=== PATIENT | female | born 1995 | race Caucasian/White ===

== ENCOUNTER 2017-04-18 20:52 | Emergency (ER) | payer SELFPAY ==
[~2017-04-18] VITALS: Ht 152.4 cm; Wt 80.0 kg
[~2017-04-18 20:52] MED LIST: CEPHALEXIN500 MG PO; NAPROSYN500 MG PO; NO HOME MEDS; TRIMOX500 MG PO
[2017-04-18] MEDS ORDERED: LESSINA PO (21:01)
[2017-04-18 21:33] LABS: URINE BILIRUBIN - DIPSTICK NEGATIVE (NEGATIVE); URINE BLOOD DIPSTICK TRACE-INTACT (NEGATIVE); URINE CLARITY CLEAR; URINE COLOR YELLOW; URINE GLUCOSE - DIPSTICK NEGATIVE (NEGATIVE); URINE KETONE NEGATIVE (NEGATIVE); URINE NITRITE - DIPSTICK NEGATIVE (Negative); URINE PH 5.5 (4.5-8.0); URINE PROTEIN - DIPSTICK NEGATIVE (NEG-TRACE); URINE UROBILINOGEN - DIPSTICK 0.2 E.U./dL (0.2)
[2017-04-18 21:46] LABS: HEMATOCRIT 40.9 % (37.0-47.0); HEMOGLOBIN 13.9 g/dl (12.0-16.0); IMMATURE GRANULOCYTES 0.3 % (0.0-1.0); MEAN CORPUSCULAR HGB 29.9 pG CALC (26.0-32.0); NEUT# 7.25 thou/uL (2.00-7.15); RED BLOOD COUNT 4.65 mill/uL (4.20-5.60); RED CELL DISTRI WIDTH 12.5 % (11.5-15.5)
[2017-04-18 21:47] LABS: URINE LEUK ESTERASE NEGATIVE (NEGATIVE)
[2017-04-18 21:50] LABS: ALBUMIN 4.6 g/dL (3.2-5.0); ALKALINE PHOSPHATASE 72 u/l (38-126); AMYLASE 49 u/l (30-110); ANION GAP 17 (6-22 (CALC)); BILIRUBIN, TOTAL 0.3 mg/dL (0.0-1.4); BUN 10 mg/dL (7-17); BUN/CREATININE RATIO 17 (12-20 (CALC)); CALCIUM 9.9 mg/dL (8.4-10.2); CARBON DIOXIDE 25 mmol/l (22-30); CHLORIDE 105 mmol/l (95-108); CREATININE 0.6 mg/dL (0.5-1.0); GFR > 60 ML/MIN (>=60 (CALC)); GFR FOR AFR.AMER. > 60 ML/MIN (>=60 (CALC)); GLUCOSE 90 mg/dL (65-105); LIPASE 98 u/l (23-300); POTASSIUM 4.1 mmol/l (3.5-5.1); SGOT/AST 19 u/l (14-36); SGPT/ALT 46 u/l (9-52); SODIUM 143 mmol/l (137-146); TOTAL PROTEIN 7.7 g/dL (6.3-8.2)
[2017-04-19 01:58] VITALS: BP 125/63
[2017-04-19] MEDS ORDERED: PRILOSEC20 MG PO (01:59)
== END 2017-04-19 02:24 | disposition home or self-care (01) | DRG 392 ==
LOC: ED 20:52
PROVIDERS: Emergency Medicine
DX: R10.11 Right upper quadrant pain (principal)
CPT/HCPCS: S0164

== ENCOUNTER 2017-08-16 01:03 | Emergency (ER) | payer SELFPAY ==
[~2017-08-16] VITALS: Ht 152.4 cm; Wt 78.0 kg
[~2017-08-16 01:03] MED LIST changes: +LESSINA PO; +PRILOSEC20 MG PO
[2017-08-16 01:47] LABS: URINE BILIRUBIN - DIPSTICK NEGATIVE (NEGATIVE); URINE BLOOD DIPSTICK NEGATIVE (NEGATIVE); URINE COLOR YELLOW; URINE GLUCOSE - DIPSTICK NEGATIVE (NEGATIVE); URINE KETONE NEGATIVE (NEGATIVE); URINE LEUK ESTERASE NEGATIVE (NEGATIVE); URINE NITRITE - DIPSTICK NEGATIVE (Negative); URINE PROTEIN - DIPSTICK NEGATIVE (NEG-TRACE); URINE SPECIFIC GRAVITY <=1.005; URINE UROBILINOGEN - DIPSTICK 0.2 E.U./dL (0.2)
[2017-08-16 01:47] LABS: HEMATOCRIT 39.8 % (37.0-47.0); HEMOGLOBIN 13.3 g/dl (12.0-16.0); IMMATURE GRANULOCYTES 0.2 % (0.0-1.0); MEAN CELL VOLUME 88.2 fL CALC (80.0-100.0); MEAN CORPUSCULAR HGB 29.5 pG CALC (26.0-32.0); MEAN CORPUSCULAR HGB CONC 33.4 g/L CALC (32.0-36.0); NEUT# 5.78 thou/uL (2.00-7.15); RED BLOOD COUNT 4.51 mill/uL (4.20-5.60); RED CELL DISTRI WIDTH 12.1 % (11.5-15.5)
[2017-08-16 01:48] LABS: URINE CLARITY SL CLOUDY
[2017-08-16 02:01] LABS: ALBUMIN 4.4 g/dL (3.2-5.0); ALKALINE PHOSPHATASE 64 u/l (38-126); ANION GAP 19 (6-22 (CALC)); BILIRUBIN, TOTAL 0.2 mg/dL (0.0-1.4); BUN 11 mg/dL (7-17); BUN/CREATININE RATIO 16 (12-20 (CALC)); CALCIUM 9.8 mg/dL (8.4-10.2); CARBON DIOXIDE 23 mmol/l (22-30); CHLORIDE 109 mmol/l (95-108); CREATININE 0.7 mg/dL (0.5-1.0); GFR > 60 ML/MIN (>=60 (CALC)); GFR FOR AFR.AMER. > 60 ML/MIN (>=60 (CALC)); GLUCOSE 118 mg/dL (65-105); POTASSIUM 3.9 mmol/l (3.5-5.1); SGOT/AST 18 u/l (14-36); SGPT/ALT 36 u/l (9-52); SODIUM 147 mmol/l (137-146); TOTAL PROTEIN 7.1 g/dL (6.3-8.2)
[2017-08-16 02:13] LABS: MYOGLOBIN 17 ng/mL (0 - 62)
[2017-08-16 03:45] VITALS: BP 122/69
== END 2017-08-16 04:00 | disposition home or self-care (01) | DRG 948 ==
LOC: ED 01:03
PROVIDERS: Emergency Medicine
DX: R53.1 Weakness (principal); E86.0 Dehydration; R42 Dizziness and giddiness; R11.0 Nausea

== ENCOUNTER 2018-01-12 14:31 | Emergency (ER) | payer OTHER ==
[~2018-01-12] VITALS: Ht 152.4 cm; Wt 75.0 kg
[2018-01-12 15:11] LABS: INFLUENZA A NONE DETECTED (NONE DETECT); INFLUENZA B NONE DETECTED (NONE DETECT)
[2018-01-12] MEDS ORDERED: LEVONORGESTREL PO (15:58)
[2018-01-12] MEDS ORDERED: ETHIN PO (15:58)
[2018-01-12] MEDS ORDERED: LEVAQUIN500 MG PO (16:13)
[2018-01-12 16:16] VITALS: BP 134/75
== END 2018-01-12 16:20 | disposition home or self-care (01) | DRG 153 ==
LOC: ED 14:31
PROVIDERS: Emergency Medicine
DX: J32.9 Chronic sinusitis, unspecified (principal)

== ENCOUNTER 2020-08-01 00:31 | Emergency (ER) | payer OTHER ==
[~2020-08-01] VITALS: Ht 157.5 cm; Wt 88.0 kg
[~2020-08-01 00:31] MED LIST changes: +ETHIN PO; +LEVAQUIN500 MG PO; +LEVONORGESTREL PO
[2020-08-01 01:08] LABS: HEMATOCRIT 42.1 % (37.0-47.0); HEMOGLOBIN 13.6 g/dl (12.0-16.0); IMMATURE GRANULOCYTES 0.2 % (0.0-5.0); MEAN CELL VOLUME 88.8 fL CALC (80.0-100.0); MEAN CORPUSCULAR HGB 28.7 pG CALC (26.0-32.0); MEAN CORPUSCULAR HGB CONC 32.3 g/dL CAL (32.0-36.0); NEUT# 2.29 thou/uL (2.00-7.15); RED BLOOD COUNT 4.74 mill/uL (4.20-5.60); RED CELL DISTRI WIDTH 12.8 % (11.5-15.5)
[2020-08-01 01:11] LABS: URINE BILIRUBIN - DIPSTICK NEGATIVE (NEGATIVE); URINE BLOOD DIPSTICK LARGE (NEGATIVE); URINE COLOR YELLOW; URINE GLUCOSE - DIPSTICK NEGATIVE (NEGATIVE); URINE KETONE NEGATIVE (NEGATIVE); URINE LEUK ESTERASE NEGATIVE (NEGATIVE); URINE NITRITE - DIPSTICK NEGATIVE (Negative); URINE PH 5.5 (4.5-8.0); URINE PROTEIN - DIPSTICK NEGATIVE (NEG-TRACE); URINE SPECIFIC GRAVITY >=1.030; URINE UROBILINOGEN - DIPSTICK 0.2 E.U./dL (0.2)
[2020-08-01 01:22] LABS: URINE RBC 25-50 RBC/hpf (0-5); URINE SQUAMOUS EPITHELIAL CELL FEW EPI/hpf (0-FEW); URINE WBC 0-2 WBC/hpf (0-5)
[2020-08-01 01:23] LABS: URINE BACTERIA FEW hpf
[2020-08-01 01:25] LABS: ALBUMIN 4.4 g/dL (3.2-5.0); ALKALINE PHOSPHATASE 82 u/l (38-126); ANION GAP 14 (6-22 (CALC)); BILIRUBIN, TOTAL 0.2 mg/dL (0.0-1.4); BUN 9 mg/dL (7-17); BUN/CREATININE RATIO 15 (12-20 (CALC)); CARBON DIOXIDE 25 mmol/l (22-30); CHLORIDE 108 mmol/l (95-108); CREATININE 0.6 mg/dL (0.5-1.0); GFR > 60 ML/MIN (>=60 (CALC)); GFR FOR AFR.AMER. > 60 ML/MIN (>=60 (CALC)); POTASSIUM 3.6 mmol/l (3.5-5.1); SGOT/AST 28 u/l (14-36); SODIUM 142 mmol/l (137-146); TOTAL PROTEIN 7.7 g/dL (6.3-8.2)
[2020-08-01 01:41] LABS: MYOGLOBIN 23 ng/mL (0 - 62)
[2020-08-01 02:45] VITALS: BP 125/60
--- NOTE | 2020-08-03 09:20 | NUR ---
Notified patient of positive Covid results. Patient denies any symptoms at this time. Denies SOB. Advised patient to quarantine until contacted by the [facility] with further instructions. Advised patient to return to the Ed with any SOB or other urgent needs Patient verbalized understanding.
== END 2020-08-01 02:45 | disposition home or self-care (01) | DRG 179 ==
LOC: ED 00:31
PROVIDERS: Emergency Medicine
DX: U07.1 COVID-19 (principal); R53.1 Weakness; R42 Dizziness and giddiness; R55 Syncope and collapse

== ENCOUNTER 2024-10-18 19:34 | Emergency (ER) | payer BC ==
[~2024-10-18] VITALS: Ht 157.5 cm; Wt 88.0 kg
[2024-10-18] MEDS ORDERED: SODIUM CHLORIDE 0.9% 1,000 ML IV ONE (19:45)
[2024-10-18] MEDS ORDERED: ONDANSETRON HCl 4 MG/2 ML SDV IV ONE (19:45)
[2024-10-18 20:30] LABS: URINE BILIRUBIN - DIPSTICK Negative (NEGATIVE); URINE BLOOD DIPSTICK Negative (NEGATIVE); URINE COLOR Yellow; URINE GLUCOSE - DIPSTICK Negative (NEGATIVE); URINE KETONE >=160 mg/dL (NEGATIVE); URINE LEUK ESTERASE Negative (NEGATIVE); URINE NITRITE - DIPSTICK Negative (Negative); URINE PH 5.5 (4.5-8.0); URINE PROTEIN - DIPSTICK Negative (NEG-TRACE)
[2024-10-18 20:32] LABS: BASO% 0.3 % (0-3); EOS% 0.7 % (0-8); HEMOGLOBIN 13.4 g/dl (12.0-16.0); IMMATURE GRANULOCYTES 0.1 % (0.0-5.0); LYMPH% 22.8 % (15-41); MEAN CELL VOLUME 86.7 fL CALC (80.0-100.0); MEAN CORPUSCULAR HGB 28.3 pG CALC (26.0-32.0); MEAN CORPUSCULAR HGB CONC 32.7 g/dL CAL (32.0-36.0); MONO% 6.7 % (2-13); NEUT# 9.5 thou/uL (2.00-7.15); NEUT% 69.4 % (42-76); RED BLOOD COUNT 4.73 mill/uL (4.20-5.60); RED CELL DISTRI WIDTH 12.4 % (11.5-15.5)
[2024-10-18] MEDS ORDERED: ZOFRAN4 MG/TAB PO (20:38)
[2024-10-18 20:47] LABS: ALBUMIN 4.4 g/dL (3.2-5.0); BILIRUBIN, TOTAL 0.8 mg/dL (0.02-1.3); CREATININE 0.6 mg/dL (0.5-1.0); POTASSIUM 3.8 mmol/l (3.5-5.1); TOTAL PROTEIN 7.3 g/dL (6.3-8.2)
[2024-10-18] MEDS ORDERED: ONDANSETRON4 MG PO (23:34)
[2024-10-18] MEDS ORDERED: ONDANSETRON 4 MG/TAB ODT PO ONE (23:35)
[2024-10-18 23:50] VITALS: BP 129/70
== END 2024-10-18 23:45 | disposition home or self-care (01) | DRG 833 ==
LOC: ED 19:34
PROVIDERS: Nurse Practitioner
DX: O26.891 Other specified pregnancy related conditions, first trimester (principal); R11.2 Nausea with vomiting, unspecified; Z3A.01 Less than 8 weeks gestation of pregnancy
CPT/HCPCS: J2405

== ENCOUNTER 2024-10-20 12:17 | Emergency (ER) | payer BC ==
[~2024-10-20] VITALS: Ht 157.5 cm; Wt 68.0 kg
[2024-10-20] VITALS (10 sets, daily range): BP systolic 105–155; BP diastolic 55–97
[~2024-10-20 12:17] MED LIST changes: +ONDANSETRON4 MG PO; +ZOFRAN4 MG/TAB PO
[2024-10-20] MEDS ORDERED: ONDANSETRON HCl 4 MG/2 ML SDV IV ONE (12:30)
[2024-10-20] MEDS ORDERED: LACTATED RINGER'S 1,000 ML IV ONE ×2 (12:30→14:25)
[2024-10-20 13:00] LABS: BASO% 0.4 % (0-3); EOS% 0.6 % (0-8); HEMOGLOBIN 13.8 g/dl (12.0-16.0); IMMATURE GRANULOCYTES 0.1 % (0.0-5.0); LYMPH% 18.8 % (15-41); MEAN CELL VOLUME 86.6 fL CALC (80.0-100.0); MEAN CORPUSCULAR HGB 28.5 pG CALC (26.0-32.0); MEAN CORPUSCULAR HGB CONC 32.9 g/dL CAL (32.0-36.0); MONO% 6.8 % (2-13); NEUT# 9.01 thou/uL (2.00-7.15); NEUT% 73.3 % (42-76); RED BLOOD COUNT 4.85 mill/uL (4.20-5.60); RED CELL DISTRI WIDTH 12.5 % (11.5-15.5)
[2024-10-20 13:14] LABS: ALBUMIN 4.7 g/dL (3.2-5.0); BILIRUBIN, TOTAL 0.9 mg/dL (0.02-1.3); CREATININE 0.6 mg/dL (0.5-1.0); POTASSIUM 3.9 mmol/l (3.5-5.1); TOTAL PROTEIN 8.1 g/dL (6.3-8.2)
[2024-10-20] MEDS ORDERED: METOCLOPRAMIDE HCL 10 MG/2 ML SDV IV ONE (13:55)
[2024-10-20] MEDS ORDERED: REGLAN10 MG PO (15:15)
[2024-10-20] MEDS ORDERED: ZOFRAN4 MG/TAB PO (15:15)
== END 2024-10-20 15:42 | disposition home or self-care (01) | DRG 833 ==
LOC: ED 12:17
PROVIDERS: Nurse Practitioner
DX: O21.0 Mild hyperemesis gravidarum (principal); Z3A.01 Less than 8 weeks gestation of pregnancy
CPT/HCPCS: J2405; J2765